=== PATIENT | female | born 1965 | race Caucasian/White ===

== ENCOUNTER 2016-03-23 22:44 | Emergency (ER) | payer OTHER ==
[~2016-03-23] VITALS: Ht 172.7 cm; Wt 59.0 kg
[2016-03-23 22:47] VITALS: BP 129/87; PULSE 82; RESP 16; TEMP 97.6; O2SAT 96
[2016-03-23] MEDS ORDERED: MELO7.5T4 PO (22:57)
--- NOTE | 2016-03-23 23:18 | PD ---
HPI Chief Complaint: Facial Pain or Swelling Time Seen by Provider: 22:56 Travel History International Travel<30 days: No Contact w/Intl Traveler<30days: No Traveled to known affect area: No History of Present Illness HPI 50-year-old female came to the emergency room with history of right sided ear and jaw pain. Patient says that she's had this for 7 years. The pain comes out of nowhere and is excruciating when it happens. She said that it feels like somebody is pushing an ice pick into her right ear. She also gets very sensitive to sound at that point. There is associated feeling of disequilibrium and nausea. She says when it comes the episodes last for 24-28 hours. She is incapacitated by them and is nonfunctional at that point. Once they go away patient gets very sleepy and tired for the next couple days. She has seen few in the past for these and also had a head CT 7 years ago and was told that her canal in the temporal bone was enlarged. Someone else had told her it could be TMJ. Interestingly patient says that the pain does not worsen on chewing or talking. Patient is on meloxicam and [place] as as needed when the pain comes. In the past she has occasionally received prednisone which helps for a little bit. Upon asking patient said that her mother has history of trigeminal neuralgia. Vital signs are otherwise stable. [facility], [facility] Past Medical History Narrative Medical List of her past medical history is reviewed from the nursing note. Medical History: Denies Significant Hx ?: Not Ovarian Cysts: Yes Tubal Ligation: Yes Past Surgical History Tonsillectomy: Yes Social History Alcohol Use: No Tobacco Use: Yes (CURRENTLY QUITTING) Substance Use: No Allergies-Medications (Allergen,Severity, Reaction): Coded Allergies: Penicillin (Verified Allergy, Mild, HIVES, 03/23/16) Comments List of her allergies reviewed from the nursing note. Reported Meds & Prescriptions Reported Meds & Active Scripts Active Carbamazepine 200 Mg Tab 200 Mg PO BID Prednisone 20 Mg Tab 20 Mg PO BID 5 Days Reported Meloxicam 7.5 Mg Tab 7.5 Mg PO BID Narrative Medication List of her home medications reviewed from the nursing note. Review of Systems Except as stated in HPI: all other systems reviewed are Neg Physical Exam Narrative GENERAL: Awake, alert, no obvious distress SKIN: Warm and dry. HEAD: Atraumatic. Normocephalic. EYES: Pupils equal and round. No scleral icterus. No injection or drainage. ENT: No nasal bleeding or discharge. Mucous membranes pink and moist. Right tympanic membrane is pale and has good light reflex. NECK: Trachea midline. No JVD. CARDIOVASCULAR: Regular rate and rhythm. No murmur appreciated. RESPIRATORY: No accessory muscle use. Clear to auscultation. Breath sounds equal bilaterally. GASTROINTESTINAL: Abdomen soft, non-tender, nondistended. Hepatic and splenic margins not palpable. MUSCULOSKELETAL: No obvious deformities. No clubbing. No cyanosis. No edema. NEUROLOGICAL: Awake and alert. No obvious cranial nerve deficits. Motor grossly within normal limits. Normal speech. PSYCHIATRIC: Appropriate mood and affect; insight and judgment normal. Data Data Last Documented VS Vital Signs Date Time Temp Pulse Resp B/P Pulse Ox O2 Delivery O2 Flow Rate FiO2 03/23/16 22:47 97.6 82 16 129/87 96 Room Air Orders Complete Blood Count With Diff (03/23/16 23:31) Comprehensive Metabolic Panel (03/23/16 23:31) Carbamazepine (Tegretol) (03/23/16 23:45) Prednisone (Deltasone) (03/23/16 23:45) Ct Brain W/O Iv Contrast(Rout) (03/23/16 ) Labs Laboratory Tests Test 03/23/16 23:45 White Blood Count 7.5 TH/MM3 Red Blood Count 4.01 MIL/MM3 Hemoglobin 12.7 GM/DL Hematocrit 37.0 % Mean Corpuscular Volume 92.3 FL Mean Corpuscular Hemoglobin 31.8 PG Mean Corpuscular Hemoglobin 34.5 % Concent Red Cell Distribution Width 13.4 % Platelet Count 150 TH/MM3 Mean Platelet Volume 10.0 FL Neutrophils (%) (Auto) 51.6 % Lymphocytes (%) (Auto) 35.0 % Monocytes (%) (Auto) 8.1 % Eosinophils (%) (Auto) 3.2 % Basophils (%) (Auto) 2.1 % Neutrophils # (Auto) 3.9 TH/MM3 Lymphocytes # (Auto) 2.6 TH/MM3 Monocytes # (Auto) 0.6 TH/MM3 Eosinophils # (Auto) 0.2 TH/MM3 Basophils # (Auto) 0.2 TH/MM3 CBC Comment DIFF FINAL Differential Comment Sodium Level 141 MEQ/L Potassium Level 4.0 MEQ/L Chloride Level 106 MEQ/L Carbon Dioxide Level 29.4 MEQ/L Anion Gap 6 MEQ/L Blood Urea Nitrogen 22 MG/DL Creatinine 0.74 MG/DL Estimat Glomerular Filtration 83 ML/MIN Rate Random Glucose 89 MG/DL Calcium Level 8.3 MG/DL Total Bilirubin 0.3 MG/DL Aspartate Amino Transf 6 U/L (AST/SGOT) Alanine Aminotransferase 22 U/L (ALT/SGPT) Alkaline Phosphatase 67 U/L Total Protein 6.4 GM/DL Albumin 3.4 GM/DL MDM Medical Decision Making Medical Screen Exam Complete: Yes Emergency Medical Condition: Yes Medical Record Reviewed: Yes Differential Diagnosis Trigeminal neuralgia, TMJ arthritis Narrative Course 12:[address] patient has described about the pain in my opinion she probably has trigeminal neuralgia. I have expressed this to the patient at which point she mentioned that her mother has trigeminal neuralgia as well. IV and willing to give her a course of prednisone for 5 days. However I want to start her on carbamazepine as well. I ordered blood test to make sure that her liver function was good. I had ordered CAT scan of her head without contrast which is within normal limits. I will discharge her home if her LFTs are within normal limit with a prescription for carbamazepine in addition to prednisone. I have also asked her to follow up with ENT and neurology. I'll provide her the name of the physicians who are php consultant for those. Patient is happy with this plan. Procedures EKG Prior to Arrival: No Diagnosis Primary Impression: Trigeminal neuralgia of right side of face Referrals: Miki Tavarez MD 2 days Ciaran Keenan PhD, MD 2 days Additional Instructions: Please take the medications as per the prescription direction. Please return to the ER if the condition worsens or any other new concerns. Follow-up with the ENT specialist and the neurologist whose name and number been provided to you. Please call them to get an appointment. Follow-up with your primary care. Med/Other Pt SpecificInfo: Prescription(s) given Scripts Carbamazepine 200 Mg [id number] Mg PO BID #60 TAB Ref 0 Prov:Kathy Meyers MD 03/24/16 Prednisone 20 Mg Tab20 Mg PO BID 5 Days Ref 0 Prov:Kathy Meyers MD 2/2/17 Disposition: 01 DISCHARGE HOME Condition: Stable Luigi,Shravanti R. MD Mar 23, 2016 23:18
[2016-03-23] MEDS ORDERED: predniSONE 20 MG TAB PO ONE (23:45)
[2016-03-23] MEDS ORDERED: carBAMazepine 200 MG TAB PO ONE (23:45)
[2016-03-23 23:54] LABS: AUTOMATED NEUTROPHIL # 3.9 TH/MM3 (1.8-7.7); BASOPHIL # 0.2 TH/MM3 (0-0.2); BASOPHIL % 2.1 % (0.0-2.0); EOSINOPHIL # 0.2 TH/MM3 (0-0.4); EOSINOPHIL % 3.2 % (0.0-4.0); HEMO FLAGS DIFF FINAL; LYMPHOCYTE # 2.6 TH/MM3 (1.0-4.8); MEAN CELL VOLUME 92.3 FL (80.0-100.0); MEAN CORPUSCULAR HEMOGLOBIN 31.8 PG (27.0-34.0); MEAN CORPUSCULAR HGB CONC 34.5 % (32.0-36.0); MONO % 8.1 % (0.0-8.0); NEUT % 51.6 % (16.0-70.0); PLATELET COUNT 150 TH/MM3 (150-450); RED BLOOD COUNT 4.01 MIL/MM3 (4.00-5.30); RED CELL DISTRIBUTION WIDTH 13.4 % (11.6-17.2); WHITE BLOOD COUNT 7.5 TH/MM3 (4.0-11.0)
--- NOTE | 2016-03-23 23:59 | RADRPT ---
EXAM DATE/TIME: 03/23/2016 23:50 [facility] COMPARISON: No previous studies available for comparison. INDICATIONS : Right sided earache. RADIATION DOSE: 34.69 CTDIvol (mGy) MEDICAL HISTORY : None SURGICAL HISTORY : Tonsillectomy. Tubal ligation. ENCOUNTER: Initial ACUITY: 1 day PAIN SCALE: 7/10 LOCATION: Right cranial ear TECHNIQUE: Multiple contiguous axial images were obtained of the head. Using automated exposure control and adj ustment of the mA and/or kV according to patient size, radiation dose was kept as low as reasonably a chievable to obtain optimal diagnostic quality images. FINDINGS: CEREBRUM: The ventricles are normal for age. No evidence of midline shift, mass lesion, hemorrhage or acute in farction. No extra-axial fluid collections are seen. POSTERIOR FOSSA: The cerebellum and brainstem are intact. The 4th ventricle is midline. The cerebellopontine angle i s unremarkable. EXTRACRANIAL: Paranasal sinuses and mastoid air cells appear clear. I also don't see any middle or external ear flu id on either side. SKULL: The calvaria is intact. No evidence of skull fracture. CONCLUSION: Negative noncontrast head CT. Bolivar Mahajan MD on March 23, 2016 at 23:56 Board Certified Radiologist. This report was verified electronically.
[2016-03-24] MEDS ORDERED: PRED20 PO (00:13)
[2016-03-24 00:21] LABS: ANION GAP 6 MEQ/L (5-15); AST (GOT) 6 U/L (15-37); BICARBONATE 29.4 MEQ/L (21.0-32.0); BLOOD UREA NITROGEN 22 MG/DL (7-18); CHLORIDE 106 MEQ/L (98-107); GLOMERULAR FILTRATION RATE 83 ML/MIN (>89); SODIUM (NA) 141 MEQ/L (136-145)
[2016-03-24 00:24] LABS: ALKALINE PHOSPHATASE 67 U/L (45-117); ALT (GPT) 22 U/L (10-53); TOTAL BILIRUBIN ADULT 0.3 MG/DL (0.2-1.0)
[2016-03-24] MEDS ORDERED: CARB200T PO (00:45)
== END 2016-03-24 01:13 | disposition home or self-care (01) ==
LOC: NEPC 22:44
DX: G50.0 Trigeminal neuralgia (principal); R11.0 Nausea; Z72.0 Tobacco use
CPT/HCPCS: 70450; 80053; 85025; 99283; J7512

== ENCOUNTER 2016-04-10 07:55 | Emergency (ER) | payer OTHER ==
[~2016-04-10] VITALS: Ht 172.7 cm; Wt 59.0 kg
[~2016-04-10 07:55] MED LIST: CARB200T PO; MELO7.5T4 PO; PRED20 PO
[2016-04-10 07:56] VITALS: BP 132/87; PULSE 67; RESP 17; TEMP 98.7; O2SAT 98
[2016-04-10] MEDS ORDERED: ONDANSETRON HCL 4 MG/2 ML VIAL ONE (08:16)
[2016-04-10] MEDS ORDERED: HYDR-3366 PO (08:21)
[2016-04-10 08:22] VITALS: BP 127/84; PULSE 54; RESP 16; O2SAT 100
[2016-04-10] MEDS ORDERED: LORazepam 2 MG/ML VIAL IV PUSH ONE (09:15)
[2016-04-10] MEDS ORDERED: DEXAMETHASONE SOD PHOS 4 MG/ML VIAL IV PUSH ONE (09:15)
[2016-04-10] MEDS ORDERED: MECLIZINE HCL 25 MG TAB PO ONE (09:15)
[2016-04-10] MEDS ORDERED: ONDANSETRON HCL 4 MG/2 ML VIAL IV PUSH ONE (09:15)
[2016-04-10 09:26] VITALS: BP 128/84; PULSE 52; RESP 18; O2SAT 97
--- NOTE | 2016-04-10 10:11 | PD ---
HPI Chief Complaint: Pain: Acute or Chronic Time Seen by Provider: 08:43 Travel History International Travel<30 days: No Contact w/Intl Traveler<30days: No Traveled to known affect area: No History of Present Illness HPI Patient is a 50-year-old female with history of trigeminal neuralgia who presents the emergency department with complaint of right sided facial pain. Patient states that she has had approximately 7 years of intermittent spells of right sided facial pain that radiates from the temporal region into the ear. She does occasionally have some visual changes but none present. Patient states that this has flared up over the course the last several days to weeks. Patient seen in our ER recently and started on carbamazepine 200 mg twice a day. Patient has been compliant with this but states that has not been helping. She has not been able to follow-up with ENT or neurology as referred due to lack of health insurance. Patient states that she gets an associated vertigo sensation which is her primary reason for returning to the ER today because she states her disequilibrium is often is inhibiting her ability to function. None of these symptoms are new, she's had these intermittently over the last 7 years. Per chart review when she was here last she had laboratory workup and CT imaging of the brain or all unremarkable. PFSH Past Medical History Medical other: Yes (TRIGEMINAL NEURALGIA) Reproductive: Yes (ENDOMETRIOSIS) Influenza Vaccination: No ?: Not LMP: UTERINE ABLATION Ovarian Cysts: Yes Tubal Ligation: Yes Past Surgical History Tonsillectomy: Yes Other Surgery: Yes (UTERINE ABLATION / TONGUE SURGERY) Social History Alcohol Use: No Tobacco Use: Yes (CURRENTLY QUITTING (1/2 PPD)) Substance Use: No Allergies-Medications (Allergen,Severity, Reaction): Coded Allergies: Penicillin (Verified Allergy, Mild, HIVES, 04/10/16) Reported Meds & Prescriptions Reported Meds & Active Scripts Active Carbamazepine 200 Mg Tab 200 Mg PO BID Reported Watson (Hydrocodone-Acetaminophen) 10-325 Mg Tab 1 Tab PO Q4H PRN Meloxicam 7.5 Mg Tab 7.5 Mg PO BID Review of Systems Except as stated in HPI: all other systems reviewed are Neg Physical Exam Narrative GENERAL: Well-appearing female in no acute distress SKIN: Warm and dry. HEAD: Normocephalic. Reproducible tenderness to palpation in the right temporal region, right TM. EYES: Pupils equal and round. No scleral icterus. No injection or drainage. EOMI without nystagmus. Visual acuity intact grossly. ENT: No nasal bleeding or discharge. Mucous membranes pink and moist. NECK: Supple without bruit CARDIOVASCULAR: Regular rate and rhythm. RESPIRATORY: No accessory muscle use. GASTROINTESTINAL: Abdomen soft, non-tender, nondistended. MUSCULOSKELETAL: Moves all extremity's normally NEUROLOGICAL: Awake and alert. No obvious cranial nerve deficits. Motor grossly within normal limits. Normal speech. Normal gait. PSYCHIATRIC: Appropriate mood and affect; insight and judgment normal. Data Data Last Documented VS Vital Signs Date Time Temp Pulse Resp B/P Pulse Ox O2 Delivery O2 Flow Rate FiO2 04/10/16 09:26 52 18 128/84 97 Nasal Cannula 2 04/10/16 07:56 98.7 Orders Ondansetron Inj (Zofran Inj) (04/10/16 08:16) Ondansetron Inj (Zofran Inj) (04/10/16 09:15) Meclizine (Antivert) (04/10/16 09:15) Westergren Sedimentation Rate (04/10/16 09:03) Dexamethasone Inj (Decadron Inj) (04/10/16 09:15) Lorazepam Inj (Ativan Inj) (04/10/16 09:15) Labs Laboratory Tests Test 04/10/16 09:05 Erythrocyte Sedimentation Rate 5 mm/hr MDM Medical Decision Making Medical Screen Exam Complete: Yes Emergency Medical Condition: Yes Medical Record Reviewed: Yes Differential Diagnosis 50-year-old female with history of trigeminal neuralgia here with complaint of pain from same. Patient was recently started on carbamazepine but this is low dose. We can certainly go up on this. We'll try a dose of steroids as well. Her symptoms are clearly chronic, recurrent in nature. She needs to follow up with outpatient ENT and/or neurology and has not been able to do so. We'll place mandatory referral to assist with same. Differential includes temporal arteritis but much less likely given the chronicity of her symptoms. Narrative Course ESR obtained and normal. Patient given Zofran, meclizine, Decadron and Ativan with improvement of her symptoms and will be discharged home with increase in carbamazepine. Diagnosis Primary Impression: Trigeminal neuralgia of right side of face Referrals: Ciaran Keenan PhD call for appointment Neurologist call for appointment Additional Instructions: Increase carbamazepine dose as prescribed. Follow-up with neurologist as discussed. Med/Other Pt SpecificInfo: Prescription(s) given, Existing Med Changed Scripts Carbamazepine 200 Mg [id number] Mg PO BID 30 Days Ref 0 Prov:Nita Gilbert MD 04/10/16 Disposition: 01 DISCHARGE HOME Condition: Stable Nita Gilbert MD Apr 10, 2016 10:11
[2016-04-10] MEDS ORDERED: CARB200T PO (10:14)
[2016-04-10] MEDS ORDERED: MECL-62 PO (10:16)
--- NOTE | 2016-04-11 14:34 | EKG ---
Date Performed: 04/10/2016 Time Performed: 14:22:23 PTAGE: 50 years EKG: ATRIAL FIBRILLATION WITH RAPID VENTRICULAR RESPONSE INFERIOR MYOCARDIAL INFARCTION ABNORMAL ECG INTERPRETATION BASED ON A DEFAULT AGE OF 41 YEARS NO PREVIOUS TRACING DOCTOR: Roland Fry Interpretating Date/Time 04/11/2016 14:30:11
== END 2016-04-10 11:47 | disposition home or self-care (01) ==
LOC: NEPC 07:55
DX: G50.0 Trigeminal neuralgia (principal); F17.210 Nicotine dependence, cigarettes, uncomplicated; I48.91 Unspecified atrial fibrillation
CPT/HCPCS: 85652; 93005; 96374; 96375; 96376; 99284; J1100; J2060; J2405

== ENCOUNTER 2017-06-20 09:41 | Emergency (ER) | payer SELFPAY ==
[~2017-06-20] VITALS: Ht 167.6 cm; Wt 65.0 kg
[~2017-06-20 09:41] MED LIST changes: +HYDR-3366 PO; +MECL-62 PO; +MELO7.5T27 PO; -MELO7.5T4 PO; -PRED20 PO
[2017-06-20 09:45] VITALS: BP 123/73; PULSE 63; RESP 17; O2SAT 99
--- NOTE | 2017-06-20 09:55 | PD ---
HPI Chief Complaint: Headache Time Seen by Provider: 09:45 Travel History International Travel<30 days: No Contact w/Intl Traveler<30days: No Traveled to known affect area: No History of Present Illness HPI 51-year-old female presents emergency department for evaluation of headache. Has a history of trigeminal neuralgia affecting primarily the right side but she states that it does affect her left side as well. She states that her headache is been off the past few days, she is not taking anything today to help her headache, she used to be on Topamax but discontinued it because she heard it was "poison for your system". Patient states the pain starts at the base of her neck and wraps around on top of her head and into the bifrontal region. She states this is normal for her headaches. She states that currently she does not have any insurance she has been seen by neurologist before and I thought her symptoms are likely due from trigeminal neuralgia. She denies any thunderclap presentation and the fact endorses a gradual presentation, denies any fevers denies any visual difficulty nausea vomiting diarrhea constipation or abdominal pain or focalized weakness. She does endorse some intermittent vertigo PFSH Past Medical History Diminished Hearing: No Medical other: Yes (TRIGEMINAL NEURALGIA ) Reproductive: Yes (ENDOMETRIOSIS) ?: Not Ovarian Cysts: Yes Tubal Ligation: Yes Past Surgical History Tonsillectomy: Yes Other Surgery: Yes (UTERINE ABLATION / TONGUE SURGERY) Social History Alcohol Use: No Tobacco Use: Yes Substance Use: No Allergies-Medications (Allergen,Severity, Reaction): Coded Allergies: penicillin G (Unverified Allergy, Mild, HIVES, 10/04/16) Reported Meds & Prescriptions Reported Meds & Active Scripts Active Meclizine (Meclizine HCl) 25 Mg Tab 25 Mg PO TID PRN Prednisone 20 Mg Tab 60 Mg PO DAILY 5 Days Review of Systems Except as stated in HPI: all other systems reviewed are Neg Physical Exam Narrative GENERAL: Well-developed well-nourished no obvious distress. Wearing sunglasses SKIN: Focused skin assessment warm/dry. HEAD: Atraumatic. Normocephalic. EYES: Pupils equal and round. No scleral icterus. No injection or drainage. ENT: No nasal bleeding or discharge. Mucous membranes pink and moist. NECK: Trachea midline. No JVD. CARDIOVASCULAR: Regular rate and rhythm. No murmur appreciated. RESPIRATORY: No accessory muscle use. Clear to auscultation. Breath sounds equal bilaterally. GASTROINTESTINAL: Abdomen soft, non-tender, nondistended. Hepatic and splenic margins not palpable. MUSCULOSKELETAL: No obvious deformities. No clubbing. No cyanosis. No edema. NEUROLOGICAL: Awake and alert. Cranial nerves II through XII are grossly intact and nonfocal, 5 out of 5 strength in all 4 extremities. Ambulates with an even narrow-base gait. PSYCHIATRIC: Appropriate mood and affect; insight and judgment normal. Data Data Last Documented VS Vital Signs Date Time Temp Pulse Resp B/P (MAP) Pulse Ox O2 Delivery O2 Flow Rate FiO2 06/20/17 09:45 63 17 123/73 (90) 99 Orders Orders Ecg Monitoring (06/20/17 09:53) Iv Access Insert/Monitor (06/20/17 09:53) Oximetry (06/20/17 09:53) Sodium Chloride 0.9% Flush (Ns Flush) (06/20/17 10:00) Ketorolac Inj (Toradol Inj) (06/20/17 10:00) Diphenhydramine Inj (Benadryl Inj) (06/20/17 10:00) Metoclopramide Inj (Reglan Inj) (06/20/17 10:00) Ed Discharge Order (06/20/17 11:12) MDM Medical Decision Making Medical Screen Exam Complete: Yes Emergency Medical Condition: Yes Differential Diagnosis Migraine, cluster, tension, acute intracranial hemorrhage highly unlikely. Narrative Course Patient presents emergency department for history of few days of headache. There is no red flag sign symptoms for subarachnoid hemorrhage and I think that the risks of lumbar puncture outweigh the benefits at this time. Cranial nerves are all intact, she was given migraine cocktail has improved significantly in the emergency department. Discussed with her that if these are normal for her headaches that she needs to follow-up with a neurologist. Discussed return to ED criteria symptomatic management home. She is stable for discharge Diagnosis Primary Impression: Headache Patient Instructions: Acute Headache (DC), General Instructions, How to Stop Smoking (DC) Med/Other Pt SpecificInfo: Prescription(s) given Scripts Meclizine (Meclizine) 25 Mg Tab 25 MG PO TID Y for VERTIGO, #21 TAB 0 Refills Prov: Neftali Mccormick MD 06/20/17 Prednisone (Prednisone) 20 Mg Tab 60 MG PO DAILY for 5 Days, #15 TAB 0 Refills Prov: Neftali Mccormick MD 06/20/17 Disposition: 01 DISCHARGE HOME Condition: Stable Neftali Mccormick MD June 20, 2017 09:55
[2017-06-20] MEDS ORDERED: diphenhydrAMINE HCL 50 MG/ML VIAL IVP ONE (10:00)
[2017-06-20] MEDS ORDERED: KETOROLAC TROMETHAMINE 30 MG/ML (IVP) VIAL IVP ONE (10:00)
[2017-06-20] MEDS ORDERED: METOCLOPRAMIDE HCL 10 MG/2 ML VIAL IVP ONE (10:00)
[2017-06-20] MEDS ORDERED: SODIUM CHLORIDE 0.9% FLUSH 10 ML FLUSH IVF PRN (10:00)
[2017-06-20] MEDS ORDERED: PRED20 PO (11:11)
[2017-06-20] MEDS ORDERED: MECL-62 PO (11:11)
== END 2017-06-20 15:02 | disposition home or self-care (01) ==
LOC: NEPD 09:41
DX: R51 Headache (principal); R42 Dizziness and giddiness; Z72.0 Tobacco use
CPT/HCPCS: 96374; 96375; 99284; J1200; J1885; J2765